=== PATIENT | male | born 1995 | race American Indian/Alaskan Native ===

== ENCOUNTER 2017-09-16 10:22 | Emergency (ER) | payer SELFPAY ==
[2017-09-16] MEDS ORDERED: DECADRON IM ONE (12:21)
--- NOTE | 2017-09-16 12:25 | Emergency Department Report ---
ED Headache HPI - General Chief Complaint: Headache Stated Complaint: HEADACHE Time Seen by Provider: 09/16/17 12:17 Source: patient - History of Present Illness Initial Comments: Patient is a 22 years old male who said he just get rid off flulike symptoms and he started having headache and dizziness. Patient denied any fever, stiff neck, no muscle weakness or numbness or tingling sensation. Patient denied any bowel or bladder incontinence. Timing/Duration: 24 hours Quality: moderate Recent Head Trauma: no recent headache/trauma, occasional headaches Modifying Factors: worse with: cold therapy, exposure to light, immobilization, medication, movement, rest, other Associated Symptoms: nasal congestion, nasal drainage Allergies/Adverse Reactions: Allergies No Known Allergies Allergy (Unverified 09/16/17 10:35) ED Review of Systems ROS: Stated complaint: HEADACHE Other details as noted in HPI Comment: All other systems reviewed and negative Constitutional: denies: chills, fever ENT: ear pain. denies: hearing loss Cardiovascular: denies: chest pain, palpitations Gastrointestinal: denies: abdominal pain, nausea, vomiting, diarrhea, constipation, hematemesis Neurological: headache. denies: weakness, numbness, paresthesias ED Past Medical Hx - Past Medical History Previous Medical History?: No - Surgical History Past Surgical History?: No - Social History Smoking Status: Current Every Day Smoker Substance Use Type: Marijuana ED Physical Exam - General Limitations: No Limitations General appearance: alert, in no apparent distress - Head Head exam: Present: atraumatic, normocephalic, normal inspection - Eye Eye exam: Present: normal appearance, PERRL - ENT ENT exam: Present: normal exam, normal orophraynx, mucous membranes moist, other (bilateral serous otitis media) - Neck Neck exam: Present: normal inspection, full ROM. Absent: tenderness, meningismus, lymphadenopathy, thyromegaly - Respiratory Respiratory exam: Present: normal lung sounds bilaterally. Absent: respiratory distress, wheezes, rales, rhonchi, stridor, chest wall tenderness, accessory muscle use, decreased breath sounds, prolonged expiratory - Cardiovascular Cardiovascular Exam: Present: regular rate, normal rhythm, normal heart sounds - GI/Abdominal GI/Abdominal exam: Present: soft, normal bowel sounds. Absent: distended, tenderness, guarding, rebound, rigid, mass, bruit, pulsatile mass, hernia - Back Exam Back exam: Present: normal inspection, full ROM. Absent: CVA tenderness (R), CVA tenderness (L) - Neurological Exam Neurological exam: Present: alert, oriented X3, CN II-XII intact, normal gait. Absent: abnormal gait, motor sensory deficit, reflexes normal - Skin Skin exam: Present: warm, intact ED Course Vital Signs 09/16/17 10:35 Temperature 97.9 F Pulse Rate 62 Respiratory 18 Rate Blood Pressure 134/72 O2 Sat by Pulse 98 Oximetry Critical care attestation.: If time is entered above; I have spent that time in minutes in the direct care of this critically ill patient, excluding procedure time. ED Disposition Clinical Impression: Headache, Serous otitis media Disposition: - TO HOME OR SELFCARE Is pt being admited?: No Condition: Stable Instructions: Acute Headache (ED) Referrals: PRIMARY CARE, [Primary Care Provider] - 3-5 Days
[2017-09-16 12:58] VITALS: BP 120/82
== END 2017-09-16 12:58 | disposition home or self-care (01) ==
LOC: ED 10:22
DX: H65.93 Unspecified nonsuppurative otitis media, bilateral (principal); F17.200 Nicotine dependence, unspecified, uncomplicated; F12.10 Cannabis abuse, uncomplicated
CPT/HCPCS: 96372; 99282; J1100